=== PATIENT | female | born 1950 | race Caucasian/White ===

== ENCOUNTER → 2016-04-16 | Outpatient (CLI) | payer MEDICARE, OTHER ==
[~2016-04-16] VITALS: Ht 157.5 cm; Wt 115.7 kg
[~2016-04-16] MED LIST: /CELE20CA PO; ACET-700 PO; DIOV320T PO; LEVO25TA5 PO; METO-207 PO; MULTTAB4 PO; NADO20TA2 PO; NEXI40GR PO; NS 1,000 ML IV SCH; PRAV1TAB39 PO; PROPOFOL 200 MG/20 ML VIAL As Ordered ONE; PROVASTATIN PO; SOMA350T PO; TYLE325T5 PO; ULTR50TA PO; XARE15TA PO; ZOLO50TA PO; [UNRECOGNIZED DRUG - OTHER] PO
--- NOTE | 2016-04-16 10:16 | ROOR ---
Patient Name: Sabine Bonner Procedure Date: 04/16/2016 9:51 AM Date of : 1950 Age: 65 Room: [facility] Gender: Female Note Status: Finalized Procedure: Colonoscopy to Cecum + Biopsy Polypectomy Indications: High risk colon cancer surveillance: Personal history of colonic polyps, Last colonoscopy: 2012 Providers: Rock Selby MD Referring MD: Ashly Motta DO Requesting Provider: Medicines: Monitored Anesthesia Care Complications: No immediate complications. Procedure: Pre-Anesthesia Assessment: - The heart rate, respiratory rate, oxygen saturations, blood pressure, adequacy of pulmonary ventilation, and response to care were monitored throughout the procedure. The Colonoscope was introduced through the anus and advanced to the cecum, identified by appendiceal orifice and ileocecal valve. The colonoscopy was performed without difficulty. The patient tolerated the procedure well. The quality of the bowel preparation was good. Findings: The perianal and digital rectal examinations were normal. Non-bleeding internal hemorrhoids were found during retroflexion. The hemorrhoids were small and Grade I (internal hemorrhoids that do not prolapse). Scattered small-mouthed diverticula were found in the recto-sigmoid colon, sigmoid colon and descending colon. A small polyp was found at 45 cm proximal to the anus. The polyp was sessile. The polyp was removed with a cold biopsy forceps. Resection and retrieval were complete. The exam was otherwise without abnormality on direct and retroflexion views. Impression: - Non-bleeding internal hemorrhoids. - Diverticulosis in the recto-sigmoid colon, in the sigmoid colon and in the descending colon. - One small polyp at 45 cm proximal to the anus, removed with a cold biopsy forceps. Resected and retrieved. - The examination was otherwise normal on direct and retroflexion views. - The exam was otherwise normal to the cecum. Recommendation: - Patient has a contact number available for emergencies. The signs and symptoms of potential delayed complications were discussed with the patient. Return to normal activities tomorrow. Written discharge instructions were provided to the patient. - Discharge patient to home. - Continue present medications. - Await pathology results. - Telephone GI clinic for pathology results in 1 week. - Repeat colonoscopy in 5 years for surveillance based on pathology results. - Return to referring physician. - The findings and recommendations were discussed with the patient's family. Rock Selby MD Rock Selby MD 04/16/2016 10:16:45 AM This report has been signed electronically. Number of Addenda: 0 Note Initiated On: 04/16/2016 9:51 AM Estimated Blood Loss: Estimated blood loss: none.
[2016-04-16 10:35] VITALS: BP 145/90
== END | disposition home or self-care (01) ==
LOC: M OPP 08:50
PROVIDERS: ATTEND Internal Medicine Gastroenterology
DX: Z12.11 Encounter for screening for malignant neoplasm of colon (principal); K64.0 First degree hemorrhoids; K57.30 Diverticulosis of large intestine without perforation or abscess without bleeding; D12.5 Benign neoplasm of sigmoid colon; I10 Essential (primary) hypertension; E78.00 Pure hypercholesterolemia, unspecified; M19.90 Unspecified osteoarthritis, unspecified site; R12 Heartburn; F33.9 Major depressive disorder, recurrent, unspecified; R06.83 Snoring; G47.30 Sleep apnea, unspecified; Z79.899 Other long term (current) drug therapy; Z88.8 Allergy status to other drugs, medicaments and biological substances; Z88.5 Allergy status to narcotic agent; Z87.891 Personal history of nicotine dependence

== ENCOUNTER 2016-11-03 09:27 | Emergency (ER) | payer MEDICARE, OTHER ==
[~2016-11-03] VITALS: Ht 157.5 cm; Wt 119.1 kg
[~2016-11-03 09:27] MED LIST changes: -METO-207 PO; +METO1TAB7 PO; -NS 1,000 ML IV SCH; -PROPOFOL 200 MG/20 ML VIAL As Ordered ONE
[2016-11-03 09:28] VITALS: BP 135/73
[2016-11-03] MEDS ORDERED: ASCO25TA PO (09:47)
[2016-11-03] MEDS ORDERED: VITA100067 PO (09:47)
[2016-11-03] MEDS ORDERED: DIOV320T PO (09:47)
[2016-11-03] MEDS ORDERED: KEFL500C17 PO (09:59)
== END 2016-11-03 10:22 | disposition home or self-care (01) ==
LOC: M ED 09:27
DX: L03.116 Cellulitis of left lower limb (principal)